=== PATIENT | male | born 1995 | race Caucasian/White ===

== ENCOUNTER 2020-10-10 23:22 | Emergency (ER) | payer BC ==
[~2020-10-10] VITALS: Ht 170.2 cm; Wt 122.0 kg
[2020-10-10 23:50] VITALS: BP_SYST 151
--- NOTE | 2020-10-10 23:50 | NUR ---
Patient ambulatory to bed 6 for evaluation
--- NOTE | 2020-10-11 00:05 | NUR ---
AWAKE, ALERT. STATES THAT A MOSQUITO ENTERED IN HIS RIGHT EAR A FEW DAYS AGO. HE ALREADY TRIED TO IRRIGATE IT BUT TO NO AVAIL. TODAY IT WAS A LITTLE MORE SWOLLEN AND SLIGHTLY MORE PAINFUL, SO HE DECIDED TO GO TO ER.
--- NOTE | 2020-10-11 00:49 | NUR ---
ER at bedside examining patient.
[2020-10-11] MEDS ORDERED: HYDROcodone/ACETAMIN 5-325 MG TAB (NORCO/ VICODIN) PO ONE (01:00)
[2020-10-11] MEDS ORDERED: IBUPROFEN 600 MG TABLET PO ONE (01:00)
--- NOTE | 2020-10-11 01:00 | NUR ---
RIGHT EAR IRRIGATED BY RN WITH NS. PT FELT BETTER.
[2020-10-11] MEDS ORDERED: IBUP-1969 PO (01:26)
[2020-10-11] MEDS ORDERED: HYDR-3917 PO (01:26)
[2020-10-11 01:45] VITALS: BP_SYST 151
--- NOTE | 2020-10-11 01:45 | NUR ---
Patient given written and verbal discharge instructions and verbalizes understanding. ER MD discussed with patient the results and treatment provided. Patient in stable condition. Rx of Motrin 600 mg and Howell 5/325 mg given. Patient educated on pain management and to follow up with PMD. Pain Scale 2/10. Opportunity for questions provided and answered.
== END 2020-10-11 01:45 | disposition home or self-care (01) ==
LOC: SED 23:22
DX: H60.501 Unspecified acute noninfective otitis externa, right ear (principal)
CPT/HCPCS: 99283

== ENCOUNTER 2021-06-23 20:21 | Emergency (ER) | payer BC ==
[~2021-06-23] VITALS: Ht 167.6 cm; Wt 124.7 kg
[~2021-06-23 20:21] MED LIST: HYDR-3917 PO; IBUP-1969 PO
[2021-06-23 20:25] VITALS: BP_SYST 192
[2021-06-23 21:17] LABS: BASOPHILS # (AUTO) 0.1 K/uL (0.0-0.2); BASOPHILS % (AUTO) 0.8 % (0.0-2.0); EOSINOPHILS # (AUTO) 0.3 K/uL (0.0-0.4); EOSINOPHILS % (AUTO) 2.8 % (0.0-4.0); HEMATOCRIT 43.4 % (36-54); HEMOGLOBIN 14.6 g/dL (14.0-18.0); LYMPHOCYTES # (AUTO) 2.5 K/uL (1.0-5.5); MEAN CORPUSCULAR HEMOGLOBIN 29 pg (27-31); MEAN CORPUSCULAR HGB CONC 34 % (32-36); MEAN CORPUSCULAR VOLUME 87 fL (79.0-98.0); MONOCYTES # (AUTO) 0.7 K/uL (0.0-1.0); MONOCYTES % (AUTO) 6.5 % (1.7-9.3); NEUTROPHILS # (AUTO) 7.7 K/uL (1.8-7.7); NEUTROPHILS % (AUTO) 67.9 % (40.0-70.0); PLATELET COUNT (AUTO) 203 K/uL (130-430); RED BLOOD CELL COUNT(AUTO) 4.99 MIL/uL (4.2-6.2); RED CELL DISTRIBUTION WIDTH 13.7 % (9.0-15.0); WHITE BLOOD COUNT (AUTO) 11.3 K/uL (4.8-10.8)
[2021-06-23 21:29] LABS: CALCIUM 9.2 mg/dL (8.4-11.0); CREATININE 0.93 mg/dL (0.55-1.30); POTASSIUM 3.5 mmol/L (3.5-5.1)
[2021-06-23 21:38] LABS: TOTAL BILIRUBIN 0.3 mg/dL (0.0-1.0)
[2021-06-23 22:38] VITALS: BP_SYST 192
== END 2021-06-23 22:34 | disposition home or self-care (01) ==
LOC: SED 20:21
DX: R55 Syncope and collapse (principal); R74.01 Elevation of levels of liver transaminase levels; R03.0 Elevated blood-pressure reading, without diagnosis of hypertension; Z79.899 Other long term (current) drug therapy
CPT/HCPCS: 36415; 71045; 80053; 84484; 85025; 85379; 93005; 99285

== ENCOUNTER 2022-10-06 18:20 | Emergency (ER) | payer BC, MEDICAID ==
[~2022-10-06] VITALS: Ht 172.7 cm; Wt 129.3 kg
[2022-10-06 18:41] VITALS: BP_SYST 150
--- NOTE | 2022-10-06 19:00 | NUR ---
PT TO [facility] FOR DR SHEFALI LARA
--- NOTE | 2022-10-06 19:30 | NUR ---
Patient given written and verbal discharge instructions and verbalizes understanding. ER MD MEEHAN discussed with patient the results and treatment provided. Patient in stable condition. ID arm band removed. IV catheter removed intact and dressing applied, no active bleeding. Rx of NONE given. Patient educated on pain management and to follow up with PMD. Pain Scale . Opportunity for questions provided and answered. Medication side effect fact sheet provided.
[2022-10-06] MEDS ORDERED: LIDOCAINE 1% 10 MG/ML, 20 ML MDV INJ ONE (22:45)
[2022-10-06] MEDS ORDERED: DIPHTH,PERTUSS(ACELL),TET VAC 0.5 ML VIAL (Tdap) I.M. ONE (22:45)
[2022-10-06] MEDS ORDERED: BACITRACIN 1 GM OINT TP ONE (22:45)
== END 2022-10-06 19:30 | disposition home or self-care (01) ==
LOC: SED 18:20
DX: S61.411A Laceration without foreign body of right hand, initial encounter (principal); Z79.899 Other long term (current) drug therapy; W26.0XXA Contact with knife, initial encounter; Y93.89 Activity, other specified; Y92.89 Other specified places as the place of occurrence of the external cause; Y99.8 Other external cause status
CPT/HCPCS: 99283; 90715; 90471; 12002; J2001

== ENCOUNTER 2024-01-04 11:11 | Emergency (ER) | payer MEDICAID, OTHER ==
[~2024-01-04] VITALS: Ht 172.7 cm; Wt 117.9 kg
[2024-01-04 11:11] VITALS: BP_SYST 139; PULSE 82; RESP 18; TEMP 97.9; O2SAT 99
[2024-01-04 11:49] LABS: BASOPHILS # (AUTO) 0.1 K/uL (0.0-0.2); BASOPHILS % (AUTO) 0.7 % (0.0-2.0); EOSINOPHILS # (AUTO) 0.1 K/uL (0.0-0.4); EOSINOPHILS % (AUTO) 0.6 % (0.0-4.0); HEMATOCRIT 46.6 % (36-54); HEMOGLOBIN 15.8 g/dL (14.0-18.0); LYMPHOCYTES # (AUTO) 2.2 K/uL (1.0-5.5); LYMPHOCYTES % (AUTO) 20.9 % (20.5-51.5); MEAN CORPUSCULAR HEMOGLOBIN 30 pg (27-31); MEAN CORPUSCULAR HGB CONC 34 % (32-36); MEAN CORPUSCULAR VOLUME 88 fL (79.0-98.0); MONOCYTES # (AUTO) 0.4 K/uL (0.0-1.0); MONOCYTES % (AUTO) 4.1 % (1.7-9.3); NEUTROPHILS # (AUTO) 7.9 K/uL (1.8-7.7); NEUTROPHILS % (AUTO) 73.7 % (40.0-70.0); PLATELET COUNT (AUTO) 227 K/uL (130-430); RED BLOOD CELL COUNT(AUTO) 5.28 MIL/uL (4.2-6.2); RED CELL DISTRIBUTION WIDTH 13.9 % (9.0-15.0); WHITE BLOOD COUNT (AUTO) 10.7 K/uL (4.8-10.8)
[2024-01-04 12:08] LABS: ALANINE AMINOTRANSFERASE 72 U/L (12-78); ALBUMIN 4.5 g/dL (3.4-4.8); AMYLASE 35 U/L (0-100); ANION GAP 11 (5-15); ASPARTATE AMINOTRANSFERASE 43 U/L (10-37); BILIRUBIN,DIRECT 0.1 mg/dL (0.0-0.3); CALCIUM 9.1 mg/dL (8.4-11.0); CARBON DIOXIDE 28 mmol/L (23-29); CHLORIDE 102 mmol/L (98-107); CREATININE 0.99 mg/dL (0.55-1.30); GFR AFRICAN AMERICAN 117 mL/min (>90); GFR NON AFRICAN-AMERICAN 96 mL/min (>90); GLUCOSE 131 mg/dL (74-106); LIPASE 24 U/L (16-77); POTASSIUM 3.9 mmol/L (3.5-5.1); SODIUM SERUM 141 mmol/L (136-145); TOTAL BILIRUBIN 0.5 mg/dL (0.0-1.0); TOTAL PROTEIN, SERUM 8.2 g/dL (6.4-8.3); UREA NITROGEN, BLOOD 12 mg/dL (8-21)
[2024-01-04 12:10] LABS: PROTHROMBIN TIME 10.7 SECS (9.5-12.5)
[2024-01-04] MEDS: OMEPRAZOLE Non-Formulary 20 MG CAPSULE.DR PO ONE (12:11)
[2024-01-04] MEDS: PANTOPRAZOLE SODIUM 40 MG TAB PO ONE (12:11)
[2024-01-04] MEDS ORDERED: OMEP20CA15 PO (13:39)
[2024-01-04 13:44] VITALS: BP_SYST 139; PULSE 82; RESP 18; TEMP 97.9; O2SAT 99
== END 2024-01-04 13:43 | disposition home or self-care (01) ==
LOC: SED 11:11
DX: K21.9 Gastro-esophageal reflux disease without esophagitis (principal); R10.10 Upper abdominal pain, unspecified; Z79.899 Other long term (current) drug therapy
CPT/HCPCS: 36415; 71045; 80048; 80076; 82150; 83605; 83690; 84484; 85025; 85610; 85730; 99284

== ENCOUNTER 2024-01-22 21:59 | Emergency (ER) | payer OTHER ==
[~2024-01-22] VITALS: Ht 167.6 cm; Wt 110.7 kg
[~2024-01-22 21:59] MED LIST changes: +OMEP20CA15 PO
[2024-01-22 22:16] VITALS: BP_SYST 147; PULSE 89; RESP 20; TEMP 97.3; O2SAT 96
[2024-01-22 22:40] VITALS: TEMP 98.6
[2024-01-22 23:11] VITALS: BP_SYST 156; PULSE 86; RESP 18; O2SAT 96
== END 2024-01-22 23:11 | disposition home or self-care (01) ==
LOC: SED 21:59
DX: R00.2 Palpitations (principal); K21.9 Gastro-esophageal reflux disease without esophagitis; Z79.899 Other long term (current) drug therapy; Z79.2 Long term (current) use of antibiotics
CPT/HCPCS: 93005; 99283